=== PATIENT | female | born 1990 | race Caucasian/White ===

== ENCOUNTER 2017-10-12 22:56 | Emergency (ER) | payer MEDICAID ==
[2017-10-12] MEDS ORDERED: Sodium Chloride 0.9% 1,000 ML IV ONE (23:35)
[2017-10-12] MEDS ORDERED: Ondansetron 4 MG/2 ML SDV IVPUSH ONE (23:35)
--- NOTE | 2017-10-12 23:36 | EDM.PDOC ---
ED HPI GENERAL MEDICAL PROBLEM - General Chief Complaint: General Stated Complaint: DAZINESS AND SICK Time Seen by Provider: 10/12/17 23:35 Source of Information: Reports: Patient - History of Present Illness INITIAL COMMENTS - FREE TEXT/NARRATIVE: HISTORY AND PHYSICAL: History of present illness: [Patient presents with dizziness and general malaise as well as sunburn She is hitchhiking today and walked a distance of 7 miles today she has significant sunburn first-degree no blistering but covering cheeks back shoulders arms and legs No current fever vomiting chills sweats she does have some nausea and states she has vomited throughout the day no chest pain shortness of breath headache dizziness or palpitation no bowel or urine symptoms Review of systems: As per history of present illness and below otherwise all systems reviewed and negative. Past medical history: As per history of present illness and as reviewed below otherwise noncontributory. Surgical history: As per history of present illness and as reviewed below otherwise noncontributory. Social history: No reported history of drug or alcohol abuse. Family history: As per history of present illness and as reviewed below otherwise noncontributory. Physical exam: HEENT: Atraumatic, normocephalic, pupils reactive, negative for conjunctival pallor or scleral icterus, mucous membranes moist, throat clear, neck supple, nontender, trachea midline. Lungs: Clear to auscultation, breath sounds equal bilaterally, chest nontender. Heart: S1S2, regular, negative for clicks, rubs, or JVD. Abdomen: Soft, nondistended, nontender. Negative for masses or hepatosplenomegaly. Negative for costovertebral tenderness. Pelvis: Stable nontender. Genitourinary: Deferred. Rectal: Deferred. Extremities: Atraumatic, negative for cords or calf pain. Neurovascular unremarkable. Neuro: Awake, alert, oriented. Cranial nerves II through XII unremarkable. Cerebellum unremarkable. Motor and sensory unremarkable throughout. Exam nonfocal. Diagnostics: [CBC CMP UA hCGUrine culture blood culture ]Chest 1 view Therapeutics: [Liter normal saline bolus 2-a shunt blood pressure 80/40 post fluid bolus resumed a third liter of fluids patient transferred to [facility] Zofran 8 mg IV Levaquin 750 mg IV Vancomycin 1000 mg IV We are on diversion status, Mynatt his fall so on diversion not accepting patients, patient had be transferred [facility] to [facility] Nixon cordova in the ER has excepted ] Impression: Hypotension Rule out sepTachycardiaydration] Definitive disposition and diagnosis as appropriate pending reevaluation and review of above. Generalized Pain Score (Numeric/FACES): 4 - Related Data Allergies Allergy/AdvReac Type Severity Reaction Status Date / Time Penicillins Allergy Anaphylactic Verified 10/12/17 23:11 Shock Home Meds: Home Meds . [No Known Home Meds] 10/12/17 [History] Social & Family History - Tobacco Use Smoking Status *Q: Current Every Day Smoker Years of Tobacco use: 10 Packs/Tins Daily: 0.5 - Recreational Drug Use Recreational Drug Use: No ED ROS GENERAL - Review of Systems Review Of Systems: See Below ED EXAM, GENERAL - Physical Exam Exam: See Below Course - Vital Signs Last Recorded V/S: Last Vital Signs Temp 99 F 10/12/17 23:14 Pulse 86 10/13/17 05:36 Resp 16 10/13/17 05:04 BP 88/46 L 10/13/17 05:36 Pulse Ox 98 10/13/17 05:04 - Orders/Labs/Meds Orders: Active Orders 24 hr Category Date Time Status EKG Documentation Completion [RC] STAT Care 10/13/17 00:45 Inactive Chest 1V Frontal [CR] Stat Exams 10/13/17 00:39 Taken CULTURE BLOOD [BC] Stat Lab 10/13/17 05:40 Ordered CULTURE BLOOD [BC] Stat Lab 10/13/17 05:50 Received CULTURE URINE [RM] Stat Lab 10/13/17 02:00 Received HCG QUALITATIVE,URINE [URCHEM] Stat Lab 10/13/17 02:00 Ordered UA W/MICROSCOPIC [URIN] Stat Lab 10/13/17 02:00 Ordered Sodium Chloride 0.9% [Normal Saline] 1,000 ml Med 10/13/17 02:45 Active IV .BOLUS Sodium Chloride 0.9% [Normal Saline] 1,000 ml Med 10/13/17 05:40 Active IV .BOLUS Vancomycin [Vancocin] 1 gm Med 10/13/17 05:49 Active Sodium Chloride 0.9% [Normal Saline] 250 ml IV ONETIME Blood Culture x2 Reflex Set [OM.PC] Stat Oth 10/13/17 05:40 Ordered Medication Orders Sodium Chloride (Normal Saline) 1,000 mls @ 999 mls/hr IV .BOLUS GURJIT Last Admin: 10/13/17 02:48 Dose: 999 mls/hr Sodium Chloride (Normal Saline) 1,000 mls @ 999 mls/hr IV .BOLUS ONE Stop: 10/13/17 06:40 Last Admin: 10/13/17 06:05 Dose: 999 mls/hr Vancomycin HCl 1 gm/ Sodium (Chloride) 250 mls @ 166 mls/hr IV ONETIME ONE Stop: 10/13/17 07:19 Labs: Laboratory Tests 10/13/17 10/13/17 10/13/17 Range/Units 00:20 00:20 00:20 WBC 11.44 H (4.0-11.0) K/uL RBC 3.82 L (4.30-5.90) M/uL Hgb 11.7 L (12.0-16.0) g/dL Hct 34.6 L (36.0-46.0) % MCV 90.6 (80.0-98.0) fL MCH 30.6 (27.0-32.0) pg MCHC 33.8 (31.0-37.0) g/dL RDW Std Deviation 39.7 (28.0-62.0) fl RDW Coeff of Jennifer 12 (11.0-15.0) % Plt Count 283 (150-400) K/uL MPV 8.80 (7.40-12.00) fL Neut % (Auto) 69.1 (48.0-80.0) % Lymph % (Auto) 20.5 (16.0-40.0) % [place] % (Auto) 8.7 (0.0-15.0) % Eos % (Auto) 1.4 (0.0-7.0) % Baso % (Auto) 0.3 (0.0-1.5) % Neut # (Auto) 7.9 H (1.4-5.7) K/uL Lymph # (Auto) 2.3 (0.6-2.4) K/uL [place] # (Auto) 1.0 H (0.0-0.8) K/uL Eos # (Auto) 0.2 (0.0-0.7) K/uL Baso # (Auto) 0.0 (0.0-0.1) K/uL Sodium 138 (136-145) mmol/L Potassium 3.5 (3.5-5.1) mmol/L Chloride 101 (98-107) mmol/L Carbon Dioxide 29.0 (21.0-32.0) mmol/L BUN 19 H (7.0-18.0) mg/dL Creatinine 0.8 (0.6-1.0) mg/dL Est Cr Clr Drug Dosing 89.60 mL/min Estimated GFR (MDRD) > 60.0 ml/min Glucose 114 H (74-106) mg/dL Calcium 9.2 (8.5-10.1) mg/dL Total Bilirubin 0.5 (0.2-1.0) mg/dL AST 18 (15-37) IU/L ALT 16 (14-63) IU/L Alkaline Phosphatase 76 (46-116) U/L Creatine Kinase 97 (26-308) U/L Troponin I < 0.050 (0.000-0.056) ng/mL Total Protein 6.8 (6.4-8.2) g/dL Albumin 3.5 (3.4-5.0) g/dL Globulin 3.3 (2.0-3.5) g/dL Albumin/Globulin Ratio 1.1 L (1.3-2.8) Urine Color Urine Appearance Urine pH (5.0-8.0) Ur Specific [place] (1.001-1.035) Urine Protein (NEGATIVE) mg/dL Urine Glucose (UA) (NEGATIVE) mg/dL Urine Ketones (NEGATIVE) mg/dL Urine Occult Blood (NEGATIVE) Urine Nitrite (NEGATIVE) Urine Bilirubin (NEGATIVE) Urine Urobilinogen (<2.0) EU/dL Ur Leukocyte Esterase (NEGATIVE) Urine RBC (0-2/HPF) Urine WBC (0-5/HPF) Ur Epithelial Cells (NONE-FEW) Urine Bacteria (NEGATIVE) Urine HCG, Qual (NEGATIVE) 10/13/17 10/13/17 Range/Units 02:00 02:00 WBC (4.0-11.0) K/uL RBC (4.30-5.90) M/uL Hgb (12.0-16.0) g/dL Hct (36.0-46.0) % MCV (80.0-98.0) fL MCH (27.0-32.0) pg MCHC (31.0-37.0) g/dL RDW Std Deviation (28.0-62.0) fl RDW Coeff of Jennifer (11.0-15.0) % Plt Count (150-400) K/uL MPV (7.40-12.00) fL Neut % (Auto) (48.0-80.0) % Lymph % (Auto) (16.0-40.0) % [place] % (Auto) (0.0-15.0) % Eos % (Auto) (0.0-7.0) % Baso % (Auto) (0.0-1.5) % Neut # (Auto) (1.4-5.7) K/uL Lymph # (Auto) (0.6-2.4) K/uL [place] # (Auto) (0.0-0.8) K/uL Eos # (Auto) (0.0-0.7) K/uL Baso # (Auto) (0.0-0.1) K/uL Sodium (136-145) mmol/L Potassium (3.5-5.1) mmol/L Chloride (98-107) mmol/L Carbon Dioxide (21.0-32.0) mmol/L BUN (7.0-18.0) mg/dL Creatinine (0.6-1.0) mg/dL Est Cr Clr Drug Dosing mL/min Estimated GFR (MDRD) ml/min Glucose (74-106) mg/dL Calcium (8.5-10.1) mg/dL Total Bilirubin (0.2-1.0) mg/dL AST (15-37) IU/L ALT (14-63) IU/L Alkaline Phosphatase (46-116) U/L Creatine Kinase (26-308) U/L Troponin I (0.000-0.056) ng/mL Total Protein (6.4-8.2) g/dL Albumin (3.4-5.0) g/dL Globulin (2.0-3.5) g/dL Albumin/Globulin Ratio (1.3-2.8) Urine Color YELLOW Urine Appearance SLT CLOUDY Urine pH 6.5 (5.0-8.0) Ur Specific [place] 1.020 (1.001-1.035) Urine Protein NEGATIVE (NEGATIVE) mg/dL Urine Glucose (UA) NEGATIVE (NEGATIVE) mg/dL Urine Ketones TRACE H (NEGATIVE) mg/dL Urine Occult Blood NEGATIVE (NEGATIVE) Urine Nitrite POSITIVE H (NEGATIVE) Urine Bilirubin NEGATIVE (NEGATIVE) Urine Urobilinogen 0.2 (<2.0) EU/dL Ur Leukocyte Esterase SMALL (NEGATIVE) Urine RBC 0-2 (0-2/HPF) Urine WBC 10-22 (0-5/HPF) Ur Epithelial Cells OCCASIONAL (NONE-FEW) Urine Bacteria 3+ H (NEGATIVE) Urine HCG, Qual NEGATIVE (NEGATIVE) Meds: Medications Generic Name Dose Route Start Last Admin Trade Name Freq PRN Reason Stop Dose Admin Sodium Chloride 1,000 mls @ 999 mls/hr 10/13/17 02:45 10/13/17 02:48 Normal Saline IV 999 mls/hr .BOLUS GURJIT Administration Sodium Chloride 1,000 mls @ 999 mls/hr 10/13/17 05:40 10/13/17 06:05 Normal Saline IV 10/13/17 06:40 999 mls/hr .BOLUS ONE Administration Vancomycin HCl 1 gm/ Sodium 250 mls @ 166 mls/hr 10/13/17 05:49 Chloride IV 10/13/17 07:19 ONETIME ONE Discontinued Medications Generic Name Dose Route Start Last Admin Trade Name Freq PRN Reason Stop Dose Admin Sodium Chloride 1,000 mls @ 999 mls/hr 10/12/17 23:35 10/13/17 00:33 Normal Saline IV 10/13/17 00:35 999 mls/hr STAT ONE Administration Levofloxacin/Dextrose 750 mg/ 150 mls @ 100 mls/hr 10/13/17 02:08 10/13/17 02 :16 Premix IV 10/13/17 03:37 100 mls/hr ONETIME ONE Administration Ketorolac Tromethamine 30 mg 10/13/17 02:40 10/13/17 02:48 Toradol IVPUSH 10/13/17 02:41 30 mg ONETIME ONE Administration Ketorolac Tromethamine Confirm 10/13/17 02:41 10/13/17 03:21 Toradol Administered 10/13/17 02:42 Not Given Dose 30 mg .ROUTE .STK-MED ONE Ondansetron HCl 8 mg 10/12/17 23:35 10/13/17 00:29 Zofran IVPUSH 10/12/17 23:36 8 mg ONETIME ONE Administration Silver Sulfadiazine 1 gm 10/13/17 00:32 10/13/17 00:42 Silvadene 1% Cream 50 Gm TOP 10/13/17 00:33 1 dose ONETIME ONE Administration Departure - Departure Time of Disposition: 06:17 Disposition: DC/Tfer to Other 70 Condition: Poor Clinical Impression: Hypotension - Discharge Information Referrals: PCP,None [Primary Care Provider] - Forms: ED Department Discharge - My Orders Last 24 Hours: My Active Orders 10/13/17 00:39 Chest 1V Frontal [CR] Stat 10/13/17 00:45 EKG Documentation Completion [RC] STAT 10/13/17 02:00 CULTURE URINE [RM] Stat HCG QUALITATIVE,URINE [URCHEM] Stat UA W/MICROSCOPIC [URIN] Stat 10/13/17 02:45 Sodium Chloride 0.9% [Normal Saline] 1,000 ml IV .BOLUS 10/13/17 05:40 CULTURE BLOOD [BC] Stat Sodium Chloride 0.9% [Normal Saline] 1,000 ml IV .BOLUS Blood Culture x2 Reflex Set [OM.PC] Stat 10/13/17 05:49 Vancomycin [Vancocin] 1 gm Sodium Chloride 0.9% [Normal Saline] 250 ml IV ONETIME 10/13/17 05:50 CULTURE BLOOD [BC] Stat - Assessment/Plan Last 24 Hours: My Active Orders 10/13/17 00:39 Chest 1V Frontal [CR] Stat 10/13/17 00:45 EKG Documentation Completion [RC] STAT 10/13/17 02:00 CULTURE URINE [RM] Stat HCG QUALITATIVE,URINE [URCHEM] Stat UA W/MICROSCOPIC [URIN] Stat 10/13/17 02:45 Sodium Chloride 0.9% [Normal Saline] 1,000 ml IV .BOLUS 10/13/17 05:40 CULTURE BLOOD [BC] Stat Sodium Chloride 0.9% [Normal Saline] 1,000 ml IV .BOLUS Blood Culture x2 Reflex Set [OM.PC] Stat 10/13/17 05:49 Vancomycin [Vancocin] 1 gm Sodium Chloride 0.9% [Normal Saline] 250 ml IV ONETIME 10/13/17 05:50 CULTURE BLOOD [BC] Stat
[2017-10-13] MEDS ORDERED: Silver Sulfadiazine 1% Crm 50 GM Tube TOP ONE (00:32)
[2017-10-13 00:53] LABS: CHLORIDE,CL 101 mmol/L (98-107); SODIUM,NA 138 mmol/L (136-145)
[2017-10-13] MEDS ORDERED: Levofloxacin/Dextrose 5%-Water 750 MG in Premix Bag 1 BAG IV ONE (02:08)
[2017-10-13] MEDS ORDERED: Ketorolac 30 MG/ML SDV IVPUSH ONE (02:40)
[2017-10-13] MEDS ORDERED: Ketorolac 30 MG/ML SDV ONE (02:41)
[2017-10-13] MEDS ORDERED: Sodium Chloride 0.9% 1,000 ML IV SCH (02:45)
[2017-10-13] MEDS ORDERED: Sodium Chloride 0.9% 1,000 ML IV ONE (05:40)
--- NOTE | 2017-10-13 09:43 | CR ---
EXAM DATE: 10/12/17 PATIENT'S AGE: 27 Patient: GOLDIE BAUTISTA Facility: [place], [place] Site . Site : 1990 Study: XRay Chest [id number] 1:44:45 AM Ordering Physician: Sukhi Hamilton Final Report: INDICATION: fever, chills, pain, shortness of breath TECHNIQUE: Chest 1 view COMPARISON: None FINDINGS: Cardiovascular and mediastinum: Heart size and vasculature are normal in caliber and appearance. Mediastinum is within normal limits. Lungs and pleural space: No focal consolidation. No sign of pleural effusion. No pneumothorax. Bones and soft tissues: No significant findings. IMPRESSION: No acute cardiopulmonary disease. Dictated by Chandan Alvarez MD @ 10/13/2017 1:47:01 AM Dictated by: Chandan Alvarez MD @ 10/13/2017 01:47:18 (Electronic Signature) Report Signed by Proxy. KOURTNEY
== END 2017-10-13 06:50 | disposition other institution (70) ==
LOC: MW.ED 22:56
DX: I95.9 Hypotension, unspecified (principal); F17.210 Nicotine dependence, cigarettes, uncomplicated; Z88.0 Allergy status to penicillin
CPT/HCPCS: 71045; 80053; 81001; 81025; 82550; 84484; 85025; 87040; 87086; 87088; 87186; 96361; 96365; 96366; 96375; 99285; A9270; J1885; J1956; J2405; J7040; J3370; J7050

== ENCOUNTER 2017-10-13 13:07 | Observation (INO) | payer MEDICAID ==
--- NOTE | 2017-10-13 13:12 | EDM.PDOC ---
ED HPI GENERAL MEDICAL PROBLEM - General Chief Complaint: Possible Sepsis Stated Complaint: SEPSIS Time Seen by Provider: 10/13/17 13:08 - History of Present Illness INITIAL COMMENTS - FREE TEXT/NARRATIVE: HISTORY AND PHYSICAL: History of present illness: The patient is a 27-year-old female who arrives via EMS after a complicated morning; the patient was seen here at 3:25 AM and signed out AGAINST MEDICAL ADVICE just before 7 AM after being diagnosed with sepsis. According to the providers not she presented with dizziness generalized malaise as well as sunburn. She was hitchhiking and walked a distance of about 7 miles and noted that she had sunburn but no blistering and she felt run down. She didn't have vomiting chills or sweats but did have some nausea and did state to the provider at that evaluation that she had vomited throughout the day yesterday. She denied shortness of breath or headache. She had a full evaluation including a CBC CMP CPK UA UCG chest x-ray urine culture and blood cultures and I've reviewed all those findings. Her UA was positive and currently her urine culture is showing greater than 10 to the fifth gram-negative organisms without any identification yet. The patient received 2 L of IV fluids and despite having systolic pressures of around 100 she dropped her pressure to 80s and transfer was organized. We currently do not have any beds at our facility to accommodate her. He was given Zofran 8 mg Levaquin 750mg and vancomycin 1 g IV. Because we were on diversion the patient was planned for transfer and [facility] was also on full diversion so arrangements were made at [facility] in [place]. The patient opted to sign out AGAINST MEDICAL ADVICE just prior to that transfer despite being advised repeatedly of the possibilities of progression of her illness. She called EMS this afternoon and was transferred here for evaluation and care. The patient does not talk much with me but will follow commands and seems somewhat disinterested in the reevaluation. The boyfriend is with her and says that she has been pushing fluids all morning and she has eaten [employer] and some pizza and has not had any nausea or vomiting. She has not had any fevers but she has had chills. She has no abdominal pain no chest pain no shortness of breath. She has generalized weakness. She otherwise has no other complaints and is not dizzy or lightheaded has no headache neck pain or back pain. Review of systems: As per history of present illness and below otherwise all systems reviewed and negative. Past medical history: As per history of present illness and as reviewed below otherwise noncontributory. Surgical history: As per history of present illness and as reviewed below otherwise noncontributory. Social history: No reported history of drug or alcohol abuse. Family history: As per history of present illness and as reviewed below otherwise noncontributory. Physical exam: General: Well-developed well-nourished female who primarily keeps her eyes closed in the ED but is following commands and is interactive. Vital signs are noted by me HEENT: Atraumatic, normocephalic, pupils reactive, negative for conjunctival pallor or scleral icterus, mucous membranes tacky, throat clear, neck supple, nontender, trachea midline. Lungs: Clear to auscultation, breath sounds equal bilaterally, chest nontender. Heart: S1S2, regular rate and rhythm no overt murmurs Abdomen: Soft, nondistended, nontender. Negative for masses or hepatosplenomegaly. Hypoactive bowel sounds Pelvis: Stable nontender. Genitourinary: Deferred. Rectal: Deferred. Extremities: Atraumatic, negative for cords or calf pain. Neurovascular unremarkable. Neuro: Awake, alert, oriented. Motor and sensory unremarkable throughout. Exam nonfocal. Skin: There is a superficial sunburn seen on the upper back anterior neck and upper extremities as well as her face without any blistering. Turgor is normal and there is no evidence of any other rashes or lesions Diagnostics: CBC CMP CPK lactic acid Therapeutics: IV fluids, IV O2 monitor toradol Patient received Levaquin and vancomycin this morning. We'll give the patient some Toradol and she keeps complaining of her sunburn pain. 1545: Case was discussed with Dr. Ramos who accepts the patient for observation admission. I've also discussed the results with the patient and she is agreeable for admission. Although she overall looks much improved from her prior visit in light of recent events we will OBSERVE overnight and reevaluate pending the blood and urine cultures Impression: UTI with history of hypotension and recent ER visit, rule out urosepsis stable Definitive disposition and diagnosis as appropriate pending reevaluation and review of above. bodyaches Pain Score (Numeric/FACES): 6 - Related Data Allergies Allergy/AdvReac Type Severity Reaction Status Date / Time Penicillins Allergy Anaphylactic Verified 10/13/17 13:08 Shock Home Meds: Home Meds . [No Known Home Meds] 10/12/17 [History] ED ROS GENERAL - Review of Systems Review Of Systems: ROS reveals no pertinent complaints other than HPI. ED EXAM, GENERAL - Physical Exam Exam: See Below (See dictation) Course - Vital Signs Last Recorded V/S: Last Vital Signs Temp 36.7 C 10/13/17 13:08 Pulse 84 10/13/17 15:46 Resp 18 10/13/17 15:46 BP 99/54 L 10/13/17 15:46 Pulse Ox 98 10/13/17 15:46 - Orders/Labs/Meds Orders: Active Orders 24 hr Category Date Time Status Patient Status [ADT] Stat ADT 10/13/17 15:57 Ordered Cardiac Monitoring [RC] . DIRECTED Care 10/13/17 13:22 Active Oxygen Therapy, ED [RC] ASDIRECTED Care 10/13/17 13:22 Active Pulse Oximetry [RC] ASDIRECTED Care 10/13/17 13:22 Active Sodium Chloride 0.9% [Normal Saline] 1,000 ml Med 10/13/17 15:45 Active IV ASDIRECTED Sodium Chloride 0.9% [Saline Flush] Med 10/13/17 13:17 Active 10 ml FLUSH ASDIRECTED PRN Sodium Chloride 0.9% [Saline Flush] Med 10/13/17 13:17 Active 2.5 ml FLUSH ASDIRECTED PRN Saline Lock Insert [OM.PC] Stat Oth 10/13/17 13:17 Ordered Medication Orders Sodium Chloride (Normal Saline) 1,000 mls @ 150 mls/hr IV ASDIRECTED GURJIT Last Admin: 10/13/17 15:44 Dose: 150 mls/hr Sodium Chloride (Saline Flush) 10 ml FLUSH ASDIRECTED PRN PRN Reason: Keep Vein Open Last Admin: 10/13/17 13:59 Dose: 10 ml Sodium Chloride (Saline Flush) 2.5 ml FLUSH ASDIRECTED PRN PRN Reason: Keep Vein Open Last Admin: 10/13/17 13:59 Dose: 2.5 ml Labs: Laboratory Tests 0610/13/17 10/13/17 Range/Units 14:45 14:45 14:45 WBC 9.03 (4.0-11.0) K/uL RBC 3.73 L (4.30-5.90) M/uL Hgb 11.5 L (12.0-16.0) g/dL Hct 33.5 L (36.0-46.0) % MCV 89.8 (80.0-98.0) fL MCH 30.8 (27.0-32.0) pg MCHC 34.3 (31.0-37.0) g/dL RDW Std Deviation 43.2 (28.0-62.0) fl RDW Coeff of Jennifer 13 (11.0-15.0) % Plt Count 232 (150-400) K/uL MPV 8.80 (7.40-12.00) fL Neut % (Auto) 65.7 (48.0-80.0) % Lymph % (Auto) 22.8 (16.0-40.0) % [place] % (Auto) 7.8 (0.0-15.0) % Eos % (Auto) 3.4 (0.0-7.0) % Baso % (Auto) 0.3 (0.0-1.5) % Neut # (Auto) 5.9 H (1.4-5.7) K/uL Lymph # (Auto) 2.1 (0.6-2.4) K/uL [place] # (Auto) 0.7 (0.0-0.8) K/uL Eos # (Auto) 0.3 (0.0-0.7) K/uL Baso # (Auto) 0.0 (0.0-0.1) K/uL Nucleated RBC % 0.0 /100WBC Nucleated RBCs # 0 K/uL Lactate 1.8 (0.20-2.00) mmol/L Sodium 142 (136-145) mmol/L Potassium 4.0 (3.5-5.1) mmol/L Chloride 108 H (98-107) mmol/L Carbon Dioxide 20.1 L (21.0-32.0) mmol/L BUN 13 (7.0-18.0) mg/dL Creatinine 0.5 L (0.6-1.0) mg/dL Est Cr Clr Drug Dosing 137.33 mL/min Estimated GFR (MDRD) > 60.0 ml/min Glucose 97 (74-106) mg/dL Calcium 7.8 L (8.5-10.1) mg/dL Total Bilirubin 0.3 (0.2-1.0) mg/dL AST 23 (15-37) IU/L ALT 16 (14-63) IU/L Alkaline Phosphatase 73 (46-116) U/L Creatine Kinase 104 (26-308) U/L Total Protein 5.9 L (6.4-8.2) g/dL Albumin 2.9 L (3.4-5.0) g/dL Globulin 3.0 (2.0-3.5) g/dL Albumin/Globulin Ratio 1.0 L (1.3-2.8) Meds: Medications Generic Name Dose Route Start Last Admin Trade Name Freq PRN Reason Stop Dose Admin Sodium Chloride 1,000 mls @ 150 mls/hr 10/13/17 15:45 10/13/17 15:44 Normal Saline IV 150 mls/hr ASDIRECTED GURJIT Administration Sodium Chloride 10 ml 10/13/17 13:17 10/13/17 13:59 Saline Flush FLUSH 10 ml ASDIRECTED PRN Administration Keep Vein Open Sodium Chloride 2.5 ml 10/13/17 13:17 10/13/17 13:59 Saline Flush FLUSH 2.5 ml ASDIRECTED PRN Administration Keep Vein Open Discontinued Medications Generic Name Dose Route Start Last Admin Trade Name Valentinq PRN Reason Stop Dose Admin Sodium Chloride 1,000 mls @ 999 mls/hr 10/13/17 13:17 10/13/17 13:57 Normal Saline IV 10/13/17 14:17 999 mls/hr STAT ONE Administration Ketorolac Tromethamine 30 mg 10/13/17 15:36 10/13/17 15:44 Toradol IVPUSH 10/13/17 15:37 30 mg ONETIME ONE Administration Ondansetron HCl 4 mg 10/13/17 14:12 10/13/17 14:21 Zofran IVPUSH 10/13/17 14:13 4 mg ONETIME ONE Administration Departure - Departure Time of Disposition: 15:59 Disposition: Refer to Observation Condition: Good Clinical Impression: UTI (urinary tract infection), Dehydration - Discharge Information Referrals: PCP,Not In Area [Primary Care Provider] - Forms: ED Department Discharge - My Orders Last 24 Hours: My Active Orders 10/13/17 13:17 Sodium Chloride 0.9% [Saline Flush] 10 ml FLUSH ASDIRECTED PRN Sodium Chloride 0.9% [Saline Flush] 2.5 ml FLUSH ASDIRECTED PRN Saline Lock Insert [OM.PC] Stat 10/13/17 13:22 Cardiac Monitoring [RC] . DIRECTED Oxygen Therapy, ED [RC] ASDIRECTED Pulse Oximetry [RC] ASDIRECTED 10/13/17 15:45 Sodium Chloride 0.9% [Normal Saline] 1,000 ml IV ASDIRECTED 10/13/17 15:57 Patient Status [ADT] Stat - Assessment/Plan Last 24 Hours: My Active Orders 10/13/17 13:17 Sodium Chloride 0.9% [Saline Flush] 10 ml FLUSH ASDIRECTED PRN Sodium Chloride 0.9% [Saline Flush] 2.5 ml FLUSH ASDIRECTED PRN Saline Lock Insert [OM.PC] Stat 10/13/17 13:22 Cardiac Monitoring [RC] . DIRECTED Oxygen Therapy, ED [RC] ASDIRECTED Pulse Oximetry [RC] ASDIRECTED 10/13/17 15:45 Sodium Chloride 0.9% [Normal Saline] 1,000 ml IV ASDIRECTED 10/13/17 15:57 Patient Status [ADT] Stat
[2017-10-13] MEDS ORDERED: Sodium Chloride 0.9% 2.5 ML Syringe FLUSH PRN (13:17)
[2017-10-13] MEDS ORDERED: Sodium Chloride 0.9% 10 ML Syringe FLUSH PRN (13:17)
[2017-10-13] MEDS ORDERED: Sodium Chloride 0.9% 1,000 ML IV ONE (13:17)
[2017-10-13] MEDS ORDERED: Ondansetron 4 MG/2 ML SDV IVPUSH ONE (14:12)
[2017-10-13 15:22] LABS: CHLORIDE,CL 108 mmol/L (98-107); SODIUM,NA 142 mmol/L (136-145)
[2017-10-13] MEDS ORDERED: Ketorolac 30 MG/ML SDV IVPUSH ONE (15:36)
[2017-10-13] MEDS: Sodium Chloride 0.9% 1,000 ML IV SCH ×2 (15:44→22:54)
[2017-10-13] MEDS ORDERED: Enoxaparin 40 MG/0.4 ML Syringe SUBCUT SCH (18:00)
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
[2017-10-13] MEDS ORDERED: Ondansetron 4 MG/2 ML SDV IVPUSH PRN (18:14)
[2017-10-13] MEDS: Acetaminophen 325 MG Tab PO PRN (21:04)
[2017-10-13] MEDS: Nicotine 7 MG/24 Hr Patch TRDERM SCH (22:10)
[2017-10-13] MEDS: Morphine 2 MG/ML Syringe IVPUSH PRN (22:55)
[2017-10-14] MEDS: Morphine 2 MG/ML Syringe IVPUSH PRN (04:19)
[2017-10-14] MEDS: Sodium Chloride 0.9% 1,000 ML IV SCH (05:42)
[2017-10-14 06:21] LABS: CHLORIDE,CL 110 mmol/L (98-107); SODIUM,NA 140 mmol/L (136-145)
--- NOTE | 2017-10-14 07:41 | CT ---
EXAM DATE: 10/13/17 PATIENT'S AGE: 27 Patient: GOLDIE BAUTISTA Facility: [place], [place] Site . Site : [id number] Study: CT Abdomen/Pelvis [id number]/19/2018 7:06:34 PM Ordering Physician: Rachel Herbert Final Report: HISTORY: Bilateral flank pain. History of kidney failure. TECHNIQUE: The abdomen and pelvis were scanned using helical technique at 3 mm without IV contrast. Sagittal and coronal reconstructions were performed. FINDINGS: Lung bases: No infiltrate. Liver and gallbladder: The liver parenchyma is homogeneous. There is trace fluid the subhepatic space. The gallbladder is small. No calcified gallstones. Spleen, pancreas and adrenal glands: Unremarkable. Kidneys and bladder: No calcified urolithiasis or hydronephrosis. Ureters are tiny in caliber. No ureteral stones are seen. The bladder is decompressed. Retroperitoneum and lymph nodes: The aorta is normal in caliber. There are some small periaortic and mesenteric lymph nodes. No pathologic adenopathy. GI tract: The stomach is mildly distended. No dilated small bowel loops. Normal appendix. Stool and gas are seen throughout the colon. There is trace free fluid the pelvis. No free air within the abdomen. Pelvic organs: The uterus and adnexa are unremarkable. Abdominal wall: No ventral hernia. Osseous structures: Two bone islands are seen within the right femoral head. Disc spaces and vertebral body heights are maintained. Endplates are well defined. IMPRESSION: 1. No calcified urolithiasis, hydronephrosis or ureteral obstruction. 2. Trace fluid seen in the subhepatic space and within the pelvis. Uterus and ovaries are normal. 3. No appendicitis, diverticulitis or bowel obstruction. Dictated by Pia Del Real MD @ 10/13/2017 7:20:55 PM Please note that all CT scans at this facility use dose modulation, iterative reconstruction, and/or weight-based dosing when appropriate to reduce radiation dose to as low as reasonably achievable. Dictated by: Pia Del Real MD @ 10/13/2017 19:21:29 (Electronic Signature) Report Signed by Proxy. [facility]
[2017-10-14] MEDS: Acetaminophen 325 MG Tab PO PRN (08:14)
[2017-10-14] MEDS ORDERED: Levofloxacin/Dextrose 5%-Water 750 MG in Premix Bag 1 BAG IV SCH (09:00)
[2017-10-14] MEDS: Nicotine 7 MG/24 Hr Patch TRDERM SCH (10:36)
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
== END 2017-10-14 13:00 | disposition home or self-care (01) ==
LOC: MW.ED 13:07 → MW.MS 16:22
PROVIDERS: ADMIT Internal Medicine; ATTEND Internal Medicine
DX: N39.0 Urinary tract infection, site not specified (principal); B96.20 Unspecified Escherichia coli [E. coli] as the cause of diseases classified elsewhere; E86.0 Dehydration; D72.829 Elevated white blood cell count, unspecified; I95.9 Hypotension, unspecified; Z79.2 Long term (current) use of antibiotics; Z88.0 Allergy status to penicillin
CPT/HCPCS: 36415; 74150; 80048; 80053; 82550; 83605; 83690; 84703; 85025; 86677; 96361; 96374; 96375; 96376; 99285; A9270; G0378; J1885; J1956; J2270; J2405; J7040